=== PATIENT | male | born 1990 | race Two or more races ===

== ENCOUNTER 2024-04-17 22:26 | Emergency (ER) | payer OTHER ==
[~2024-04-17] VITALS: Ht 175.3 cm; Wt 96.7 kg
[2024-04-18] MEDS: KETOROLAC TROMETH 30 MG/ML 1ML VIAL IM ONE (01:55)
[2024-04-18 02:02] VITALS: BP 129/72; PULSE 61; RESP 18; TEMP 98.5; O2SAT 96
== END 2024-04-18 02:56 | disposition home or self-care (01) ==
LOC: ER 22:26
DX: S56.811A Strain of other muscles, fascia and tendons at forearm level, right arm, initial encounter (principal); Z91.018 Allergy to other foods; W22.8XXA Striking against or struck by other objects, initial encounter; Y93.89 Activity, other specified; Y92.89 Other specified places as the place of occurrence of the external cause; Y99.8 Other external cause status
CPT/HCPCS: 73030; 73090; 96372; 99284; J1885